=== PATIENT | male | born 1975 | race Caucasian/White ===

== ENCOUNTER 2020-11-16 17:50 | Emergency (ER) | payer BC ==
[~2020-11-16] VITALS: Ht 180.3 cm; Wt 94.5 kg
[2020-11-16] MEDS ORDERED: NORCO 325 MG-51 TA1 PO (19:45)
[2020-11-16 19:54] VITALS: BP 129/85
== END 2020-11-16 19:54 | disposition home or self-care (01) ==
LOC: ED 17:50
DX: S62.511A Displaced fracture of proximal phalanx of right thumb, initial encounter for closed fracture (principal); X50.9XXA Other and unspecified overexertion or strenuous movements or postures, initial encounter; Y93.89 Activity, other specified
CPT/HCPCS: J1885; J3010

== ENCOUNTER 2020-12-23 12:45 | Outpatient (RCR) | payer BC ==
[~2020-12-23 12:45] MED LIST: NORCO 325 MG-51 TA1 PO
== END 2021-01-14 17:00 | disposition home or self-care (01) ==
LOC: OT 12:45
DX: S62.511A Displaced fracture of proximal phalanx of right thumb, initial encounter for closed fracture (principal)